=== PATIENT | male | born 1960 | race Caucasian/White ===

== ENCOUNTER 2021-12-07 10:24 | Emergency (ER) | payer OTHER, MEDICAID, SELFPAY ==
[2021-12-07 10:30] VITALS: BP 128/78; PULSE 60; RESP 14; TEMP 36.4; O2SAT 98; BMI 20.7
--- NOTE | 2021-12-07 11:02 | ED.WOUNDLAC ---
HPI - Wound/Laceration General Chief Complaint: Wound/Laceration Stated Complaint: Infection in lt pointer finger Time Seen by Provider: 12/07/21 10:36 Source: patient Mode of arrival: Ambulatory History of Present Illness HPI narrative: The patient is a 60-year-old male history of substance abuse currently at the methadone clinic presenting today with left index finger infection. 5 days ago he was seen and evaluated at [facility] for a laceration. He said he was getting studs out of tires out, when he slipped and cut his finger. He was prescribed antibiotics but he was unfortunately not able to pick him up. Today he was at the methadone clinic they took out a few sutures and some did discharge came out. He has not had any fever or chills he still has some mild swelling and erythema but still able to move his finger. Related Data Previous Rx's Medication Instructions Recorded cephalexin 500 mg capsule 500 mg PO TID 7 days #21 caps 12/07/21 Allergies Allergy/AdvReac Type Severity Reaction Status Date / Time codeine Allergy Verified 12/07/21 10:38 Review of Systems Review of Systems Narrative: GENERAL: Denies chills,fever HEENT: Denies throat pain RESPIRATORY: Denies dyspnea, cough, wheezing CARDIOVASCULAR: Denies chest pain, palpitations GASTROINTESTINAL: Denies nausea, vomiting MUSCULOSKELETAL: Denies extremity pain, injury SKIN: See HPI NEUROLOGIC: Denies weakness, dizziness, headache, numbness 8 point review of systems is negative except for those stated above and HPI Patient History Social History Smoking Status: Unknown if ever smoked Smoking Status: Unknown if ever smoked alcohol intake frequency: holidays/special occasions only Substance Use Type: methamphetamine Exam Initial Vital Signs Initial Vital Signs: Vital Signs Temperature 97.6 F 12/07/21 10:30 Pulse Rate 60 12/07/21 10:30 Respiratory Rate 14 12/07/21 10:30 Blood Pressure 128/78 12/07/21 10:30 Pulse Oximetry 98 12/07/21 10:30 Oxygen Delivery Method 12/07/21 10:30 GENERAL: Well-appearing, well-nourished and in no acute distress. CARDIOVASCULAR: peripheral pulses in tact, cap refill <2 sec RESPIRATORY: No respiratory distress, speaks in full sentences without difficulty EXTREMITIES: Normal range of motion, no clubbing or edema. Neurovascularly intact NEUROLOGICAL: Cranial nerves II through XII grossly intact. Normal gait and speech. SKIN: Finger mild erythema at PCP P able to flex and extend finger no gross discharge [address] Course Orders Ordered: ED Orders 12/07/21 10:41 Consult to RECREATION THERAPIST - Online Retailer Stat Vital Signs Vital signs: Vital Signs - 8 hr 12/07/21 10:30 Temperature 97.6 F Pulse Rate 60 Respiratory Rate 14 Blood Pressure 128/78 Pulse Oximetry 98 Oxygen Delivery Method Room Air MDM - Wound/Laceration MDM Narrative Medical decision making narrative: Patient has some mild erythema and swelling no gross drainage no obvious abscess. No sign of flexor tenosynovitis. He is prescribed antibiotics will pick them up at the pharmacy. He denies any history of MRSA. At this time sutures were removed at previous clinic 1 remains it needs a little longer that sutures not quite ready to come out. Discharge Plan Departure Patient Disposition: Home Clinical Impression: Cellulitis Instructions: Cellulitis Activity Restrictions/Additional Instructions: *You have been diagnosed with left index finger infection *What to do: Please keep finger clean and dry with soap and water. Monitor for any worsening redness. 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
--- NOTE | 2021-12-07 11:49 | CM.SWNOTE ---
INFORMATION SECURITY MANAGER Note INFORMATION SECURITY MANAGER receives consult and enters room. Patient is present with RN from [facility]. Patient presents to ED due to concern for infection on pointer finger. Patient is 60 y/o male with Medicaid and [employer] insurance. Patient reports concern for housing insecurity and financial insecurity. INFORMATION SECURITY MANAGER enters room and provides patient with housing, group home and transportation resources. Patient states that he lives in his car with his life partner. Patient is medically clear for d/c. Plan: patient to d/c to community [facility]
== END 2021-12-07 11:53 | disposition home or self-care (01) ==
PROVIDERS: Emergency Provider Emergency Medicine
DX: L03.012 Cellulitis of left finger (principal)
CPT/HCPCS: 99281

== ENCOUNTER 2022-03-07 13:53 | Observation (INO) | payer OTHER, MEDICAID, SELFPAY ==
[2022-03-07 13:57] VITALS: BP 108/68; PULSE 61; RESP 16; TEMP 36.3; O2SAT 94
--- NOTE | 2022-03-07 14:02 | DI.CT.S_ITS ---
PROCEDURE: CT ANGIO HEAD AND NECK INDICATIONS: Possible stroke TECHNIQUE: After the administration of intravenous contrast, 1 mm thick sections acquired from the aortic arch through the Lummi of Gonzalez. Post-contrast 4.5 mm thick sections then re-acquired from the foramen magnum to the vertex. 3-dimensional ldwlehv-lginzbufy-dskhuqofbr (MIP) and/or volume rendering reformats were acquired of the central intracranial vasculature and neck separately. For radiation dose reduction, the following was used: automated exposure control, adjustment of mA and/or kV according to patient size. COMPARISON: None. FINDINGS: Image quality: Excellent. BRAIN: CSF spaces: Ventricles are normal in size and shape. Basal cisterns are patent. No extra-axial fluid collections. Brain: No midline shift. No intracranial bleeds or masses. Jacob-white matter interface appears intact. No area of abnormal intracranial enhancement is seen. Skull and face: Calvarium and facial bones appear intact, without suspicious lesions. Orbits appear normal. Sinuses: Sinuses and mastoids are clear. HEAD CT ANGIOGRAPHY: Anterior circulation: Intracranial internal carotid arteries are normal in size and flow. The flow within the paired anterior cerebral arteries is normal and symmetric. The flow within the middle cerebral arteries is normal and symmetric. The anterior communicating artery is seen. No aneurysms are seen. Posterior circulation: Visualized portions of the vertebral arteries demonstrate normal caliber, and join to form a normal appearing basilar artery. Flow within the posterior cerebral arteries is normal and symmetric. No aneurysms are seen. NECK CT ANGIOGRAPHY: Carotid system: The great vessels demonstrate a conventional anatomy as they arise from the aortic arch. The origins of the common carotid arteries appear patent. The common carotid arteries demonstrate normal caliber and courses. The bifurcation regions are both widely patent. The internal carotid arteries demonstrate normal calibers and courses. Posterior circulation: The origins of the vertebral arteries both appear widely patent. The more superior extracranial portions of both vertebral arteries also demonstrate normal courses and calibers. They join to form a normal appearing basilar artery. Soft tissues: Visualized neck soft tissues demonstrate no suspicious abnormalities. Bones: No suspicious bony lesions. Visualized cervical spine appears normally aligned. IMPRESSION: 1. No CT evidence of acute intracranial bleed, midline shift or mass effect. No area of abnormal contrast enhancement. 2. No hemodynamically significant stenosis or aneurysm is seen in intracranial circulation. 3. No hemodynamically significant stenosis is seen in bilateral neck arteries. Any quantitative measurements of stenosis were performed using NASCET criteria. Dictated by: Adrian Mehta M.D. on 03/07/2022 at 14:45 Approved by: Adrian Mehta M.D. on 03/07/2022 at 14:52
--- NOTE | 2022-03-07 14:02 | DI.CT.S_ITS ---
PROCEDURE: CT HEAD/BRAIN WO CON INDICATIONS: Positive BE-FAST, Stroke symptoms TECHNIQUE: Noncontrast 4.5 mm thick angled axial sections acquired from the foramen magnum to the vertex, with coronal and sagittal reformats. For radiation dose reduction, the following was used: automated exposure control, adjustment of mA and/or kV according to patient size. COMPARISON: None. FINDINGS: Image quality: Excellent. CSF spaces: Basal cisterns are patent. No extra-axial fluid collections. Ventricles are normal in size and shape. Brain: No midline shift. No intracranial masses or hemorrhage. Jacob-white matter interface is normal. Skull and face: Calvarium and visualized facial bones are intact, without suspicious lesions. Sinuses: Visualized sinuses and mastoids are clear. IMPRESSION: No CT evidence of acute intracranial abnormalities. Dictated by: Adrian Mehta M.D. on 03/07/2022 at 14:45 Approved by: Adrian Mehta M.D. on 03/07/2022 at 14:45
--- NOTE | 2022-03-07 14:02 | DI.RAD.S_ITS ---
PROCEDURE: XR CHEST 1V INDICATIONS: Possible stroke TECHNIQUE: One view of the chest was acquired. COMPARISON: None. FINDINGS: Surgical changes and devices: Fusion hardware in lower cervical spine are seen. Lungs and pleura: Lungs are clear. No pleural effusions or pneumothorax. Mediastinum: Mediastinal contours appear normal. Heart size is normal. Bones and chest wall: No suspicious bony lesions. Overlying soft tissues appear unremarkable. IMPRESSION: No acute cardiopulmonary pathology. Dictated by: Adrian Mehta M.D. on 03/07/2022 at 14:32 Approved by: Adrian Mehta M.D. on 03/07/2022 at 14:32
--- NOTE | 2022-03-07 14:09 | ED_ITS ---
HPI - Neuro Symptoms/Deficit General Chief Complaint: Neuro Symptoms/Deficit Stated Complaint: decreased function of right arm , hx stroke Time Seen by Provider: 03/07/22 14:03 Source: patient Mode of arrival: EMS Limitations: no limitations History of Present Illness HPI Narrative: This is a 61-year-old male with history of prior stroke 30 years ago which he states may have been drug induced, known cervical stenosis and chronic methamphetamine abuse. Patient states that he woke up at 10:30 a.m. 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 Patient states he does have some neck pain but isn't radiating down his arm he has some numbness and tingling he denies issues elsewhere. Patient states he is allergic to codeine. States uses tobacco daily, occasional alcohol, he does use methamphetamines still last use yesterday. States that he is on Suboxone. Related Data Allergies Allergy/AdvReac Type Severity Reaction Status Date / Time codeine Allergy Verified 03/07/22 13:57 Penicillins Allergy Verified 03/07/22 13:57 Tetracyclines Allergy Verified 03/07/22 13:57 Review of Systems Review of Systems ROS Unobtainable: All systems reviewed & are unremarkable except as noted in HPI and below Patient History Social History Smoking Status: Current every day smoker Smoking Status: Current every day smoker alcohol intake frequency: holidays/special occasions only Substance Use Type: methamphetamine Exam Narrative Exam Narrative: GEN: well nourished, well appearing male, alert and oriented x 3, patient appears to be in mild distress. HEENT: Atraumatic, pupils are asymmetric, patient's right pupil is approximately 4 mm, left pupil is approximately 10 mm with almost a teardrop shape. extraocular movements are intact, nares are clear, TMs are clear with no fluid, there is no conjunctival pallor. Throat is clear without any exudates, e rythema, tonsillar enlargement or uvular deviation HEART: Regular rate and rhythm without murmur, clicks, rubs. No carotid bruits, pulses are equal in upper and lower extremities LUNGS:Lungs clear to auscultation, no wheezes, rales, crackles, chest moves symmetrically ABD:bowel sounds normal, soft, non-tender, no guarding, rebound, rigidity, no masses noted, no hepatosplenomegaly :No CVA tenderness MSCL: Non-tender, no muscle atrophy, patient has drift with right upper extremity, also has decreased oil inspector with right in comparison to the left, no pain with movement, decreased sensation slightly on the right upper extremity as well as right lower leg. Full range of motion, normal gait NEURO:CN 2-12 intact, sensation normal, finger nose finger test on right abnormal, heel robles test normal, romberg normal Initial Vital Signs Initial Vital Signs: Vital Signs Temperature 97.3 F L 03/07/22 13:57 Pulse Rate 61 03/07/22 13:57 Respiratory Rate 16 03/07/22 13:57 Blood Pressure 108/68 03/07/22 13:57 Pulse Oximetry 94 03/07/22 13:57 Oxygen Delivery Method 03/07/22 13:57 Scores NIH Stroke Scale Level of Conciousness: Alert, keenly responsive Ask month/age: Answers both questions correctly. Open/close eyes, close hand: Performs both tasks correctly Best gaze horizontal: Normal Visual peres: No visual loss Facial palsy: Normal symetrical movement Left arm drift: No drift for full 10 sec Right arm drift: Drifts down, not to bed Left leg drift: No drift for full 5 sec Right leg drift: No drift for full 5 sec Limb ataxia: Present in one limb Sensory on face/arms/legs: Mild to moderate sensory loss, can tell touch Best language: No aphasia, normal Dysarthria: Normal Extinction or inattention: No abnormality Total NIH Stroke scale score: 3 Course Orders Ordered: ED Orders 03/07/22 14:02 CT angio head and neck Stat CT head/brain wo con Stat XR chest 1V Stat 03/07/22 14:03 Complete Blood Count AUTO DIFF Stat Comprehensive Metabolic Panel Stat Magnesium Stat Partial Thromboplastin Time Stat Prothrombin Time INR Stat Troponin & CK Cardiac Panel Stat 03/07/22 14:09 EKG-12 Lead Stat 03/07/22 14:13 COVID19 -Nasal RAPID/Pre-Proc Stat 03/07/22 14:38 Urine Drug Screen, Rapid Stat 03/07/22 14:39 Urinalysis and Microscopic Stat Aspirin (Aspirin Ec 81 Mg Tablet) 81 mg PO DAILY [facility] Clopidogrel Bisulfate (Clopidogrel 75 Mg Tablet) 75 mg PO DAILY [facility] Melatonin (Melatonin 3 Mg Tablet) 6 mg PO BEDTIME [facility] Ondansetron HCl (Ondansetron 4 Mg Odt) 4 mg SL Q4HR PRN PRN Reason: Nausea Sennosides (Sennosides 8.6 Mg Tablet) 17.2 mg PO BEDTIME [facility] Discontinued Medications Aspirin (Aspirin 81 Mg Chew Tab) 324 mg PO NOW ONE Stop: 03/07/22 15:57 Last Admin: 03/07/22 15:59 Dose: 324 mg Documented By: RB Aspirin (Aspirin Ec 81 Mg Tablet) 81 mg PO DAILY [facility] Consultations Consultation #1: Dr. Larsno, hospitalist accepts for observation. Time: 16:00 Vital Signs Vital signs: Vital Signs - 8 hr 03/07/22 13:57 03/07/22 14:33 03/07/22 15:52 Temperature 97.3 F L Pulse Rate 61 58 L 54 L Respiratory Rate 16 18 Blood Pressure 108/68 127/70 121/75 Pulse Oximetry 94 93 96 Oxygen Delivery Method Room Air Room Air Room Air MDM - Neuro Symptoms/Deficit Lab Data Result diagrams: 03/07/22 14:03 03/07/22 14:03 Labs: Lab Results 03/07/22 03/07/22 03/07/22 Range/Units 14:03 14:03 14:03 WBC 6.3 (4.5-11.0) X10^3/uL RBC 3.58 L (4.5-5.9) X10^6/uL Hgb 10.9 L (13.5-17.5) g/dL Hct 31.8 L (41-53) % MCV 88.7 (80-100) fL MCH 30.3 (26-34) PG MCHC 34.2 (30-36) % RDW 13.7 (11.6-14.8) % Plt Count 296 (150-400) X10^3/uL Neut % (Auto) 36.8 L (50-75) % Lymph % (Auto) 49.0 H (25-40) % [place] % (Auto) 9.1 (3-14) % Eos % (Auto) 4.2 H (2-4) % Baso % (Auto) 0.9 (0-2) % Neut # (Auto) 2300 (1993-5070) /uL Lymph # (Auto) 3100 (2604-9936) /uL [place] # (Auto) 600 (0-900) /uL Eos # (Auto) 300 (0-450) /uL Baso # (Auto) 100 (0-100) /uL PT 13.1 H (10.1-12.7) SECONDS INR 1.1 (0.9-1.3) APTT 29 (26-36) SECONDS Sodium 139 (137-145) mmol/L Potassium 4.3 (3.4-5.1) mmol/L Chloride 104 (98-107) mmol/L Carbon Dioxide 30 (22-32) mmol/L BUN 14 (9-20) mg/dL Creatinine 0.92 (0.66-1.25) mg/dL Estimated GFR > 60 (>60) mL/min BUN/Creatinine Ratio 15.2 (6-22) Glucose 88 (80-110) mg/dL Calcium 8.5 (8.4-10.2) mg/dL Magnesium 2.2 (1.6-2.3) mg/dL Total Bilirubin 0.4 (0.2-1.3) mg/dL AST 21 (17-59) IU/L ALT 14 (<50) IU/L Alkaline Phosphatase 63 (38-126) U/L Total Creatine Kinase 81 (55-170) U/L CK-MB (CK-2) TNP CK-MB (CK-2) Rel Index TNP Troponin I < 0.012 (0.01-0.034) ng/mL Total Protein 6.7 (6.3-8.2) g/dL Albumin 3.8 (3.5-5.0) g/dL Globulin 2.9 (1.7-4.1) g/dL Albumin/Globulin Ratio 1.3 (1.0-2.8) Urine Color Urine Appearance Urine pH (4.5-8.0) Ur Specific [place] (1.000-1.035) Urine Protein (Negative) Urine Glucose (UA) (Negative) g/dL Urine Ketones (NEGATIVE) Urine Occult Blood (Negative) Urine Nitrate (Negative) Urine Bilirubin (NEGATIVE) Urine Urobilinogen (0.2) E.U./dL Ur Leukocyte Esterase (NEGATIVE) Urine RBC (0-5/HPF) Urine WBC (0-5/HPF) Urine Bacteria (None) Hyaline Casts (None) Ur Culture Indicated? U Opiates 300ng/mL cut (Negative) Ur Oxycodone Screen (Negative) Urine Methadone Screen (Negative) Ur Barbiturates Screen (Negative) U Tricyclic Antidepress (Negative) Ur Phencyclidine Scrn (Negative) Ur Amphetamines Screen (Negative) U Methamphetamines Scrn (Negative) Ur MDMA Scrn (Ecstasy) (Negative) U Benzodiazepines Scrn (Negative) Urine Cocaine Screen (Negative) U Marijuana (THC) Screen (Negative) SARS-CoV-2 (PCR) (Negative) 03/07/22 03/07/22 03/07/22 Range/Units 14:13 14:38 14:39 WBC (4.5-11.0) X10^3/uL RBC (4.5-5.9) X10^6/uL Hgb (13.5-17.5) g/dL Hct (41-53) % MCV (80-100) fL MCH (26-34) PG MCHC (30-36) % RDW (11.6-14.8) % Plt Count (150-400) X10^3/uL Neut % (Auto) (50-75) % Lymph % (Auto) (25-40) % [place] % (Auto) (3-14) % Eos % (Auto) (2-4) % Baso % (Auto) (0-2) % Neut # (Auto) (2833-7478) /uL Lymph # (Auto) (2474-0632) /uL [place] # (Auto) (0-900) /uL Eos # (Auto) (0-450) /uL Baso # (Auto) (0-100) /uL PT (10.1-12.7) SECONDS INR (0.9-1.3) APTT (26-36) SECONDS Sodium (137-145) mmol/L Potassium (3.4-5.1) mmol/L Chloride (98-107) mmol/L Carbon Dioxide (22-32) mmol/L BUN (9-20) mg/dL Creatinine (0.66-1.25) mg/dL Estimated GFR (>60) mL/min BUN/Creatinine Ratio (6-22) Glucose (80-110) mg/dL Calcium (8.4-10.2) mg/dL Magnesium (1.6-2.3) mg/dL Total Bilirubin (0.2-1.3) mg/dL AST (17-59) IU/L ALT (<50) IU/L Alkaline Phosphatase (38-126) U/L Total Creatine Kinase (55-170) U/L CK-MB (CK-2) CK-MB (CK-2) Rel Index Troponin I (0.01-0.034) ng/mL Total Protein (6.3-8.2) g/dL Albumin (3.5-5.0) g/dL Globulin (1.7-4.1) g/dL Albumin/Globulin Ratio (1.0-2.8) Urine Color Yellow Urine Appearance Clear Urine pH 7.5 (4.5-8.0) Ur Specific [place] 1.015 (1.000-1.035) Urine Protein Trace H (Negative) Urine Glucose (UA) Trace H (Negative) g/dL Urine Ketones Negative (NEGATIVE) Urine Occult Blood Negative (Negative) Urine Nitrate Negative (Negative) Urine Bilirubin Negative (NEGATIVE) Urine Urobilinogen 4.0 H (0.2) E.U./dL Ur Leukocyte Esterase Negative (NEGATIVE) Urine RBC 1-5/hpf (0-5/HPF) Urine WBC 1-5/hpf (0-5/HPF) Urine Bacteria None seen (None) Hyaline Casts 1-5/lpf (None) Ur Culture Indicated? Cult not indicated U Opiates 300ng/mL cut Negative (Negative) Ur Oxycodone Screen Negative (Negative) Urine Methadone Screen Positive H (Negative) Ur Barbiturates Screen Negative (Negative) U Tricyclic Antidepress Negative (Negative) Ur Phencyclidine Scrn Negative (Negative) Ur Amphetamines Screen Positive H (Negative) U Methamphetamines Scrn Positive H (Negative) Ur MDMA Scrn (Ecstasy) Negative (Negative) U Benzodiazepines Scrn Negative (Negative) Urine Cocaine Screen Negative (Negative) U Marijuana (THC) Screen Negative (Negative) SARS-CoV-2 (PCR) Negative (Negative) Point of Care Testing Glucose POC 93 Urine Dip Bedside Urine Glucose Negative Bedside Urine Bilirubin - Negative Bedside Urine Ketone - Negative Urine Specific [place] 1.015 Bedside Urine Occult Blood - Negative Bedside Urine pH 7.5 Bedside Urine Protein - Negative Bedside Urine Urobilinogen 1+ 2mg Bedside Urine Nitrite - Negative Bedside Urine Leukocytes - Negative Esterase Imaging Data CT scan - head: Radiologist's Impression: [address] [address] [address] Scan Report Signed Patient: Wolf Christianson Jr MR#: [id number] : 1960 Acct:[id number] Age/Sex: 61 / M Date of Service: 03/07/22 Loc: ED Accession Number: [id number] ?? Procedure: CT head/brain wo con Ordering Provider: Ni Tompkins D.O. PROCEDURE:? CT HEAD/BRAIN WO CON ? INDICATIONS:? Positive BE-FAST, Stroke symptoms ? TECHNIQUE:? Noncontrast 4.5 mm thick angled axial sections acquired from the foramen magnum to the vertex, with coronal and sagittal reformats.? For radiation dose reduction, the following was used:? automated exposure control, adjustment of mA and/or kV according to patient size.? ? COMPARISON:? None. ? FINDINGS:? Image quality:? Excellent.? ? CSF spaces:? Basal cisterns are patent.? No extra-axial fluid collections.? V entricles are normal in size and shape.? ? Brain:? No midline shift.? No intracranial masses or hemorrhage.? Jacob-white matter interface is normal.? ? Skull and face:? Calvarium and visualized facial bones are intact, without suspicious lesions.? ? Sinuses:? Visualized sinuses and mastoids are clear.? ? IMPRESSION:? No CT evidence of acute intracranial abnormalities. ? ? Dictated by: Adrian Mehta M.D. on 03/07/2022 at 14:45 ? ? Approved by: Adrian Mehta M.D. on 03/07/2022 at 14:45? CTA - brain/neck: Radiologist's Impression: [address] [address] [address] Scan Report Signed Patient: Wolf Christianson Jr MR#: [id number] : 1960 Acct:[id number] Age/Sex: 61 / M Date of Service: 03/07/22 Loc: ED Accession Number: [id number] ?? Procedure: CT head/brain wo con Ordering Provider: Ni Tompkins D.O. PROCEDURE:? CT HEAD/BRAIN WO CON ? INDICATIONS:? Positive BE-FAST, Stroke symptoms ? TECHNIQUE:? Noncontrast 4.5 mm thick angled axial sections acquired from the foramen magnum to the vertex, with coronal and sagittal reformats.? For radiation dose reduction, the following was used:? automated exposure control, adjustment of mA and/or kV according to patient size.? ? COMPARISON:? None. ? FINDINGS:? Image quality:? Excellent.? ? CSF spaces:? Basal cisterns are patent.? No extra-axial fluid collections.? Ventricles are normal in size and shape.? ? Brain:? No midline shift.? No intracranial masses or hemorrhage.? Jacob-white matter interface is normal.? ? Skull and face:? Calvarium and visualized facial bones are intact, without suspicious lesions.? ? Sinuses:? Visualized sinuses and mastoids are clear.? ? IMPRESSION:? No CT evidence of acute intracranial abnormalities. ? ? Dictated by: Adrian Mehta M.D. on 03/07/2022 at 14:45 ? ? Approved by: Adrian Mehta M.D. on 03/07/2022 at 14:45? Chest x-ray: Radiologist's Impression: [place] [address] XRay Report Signed Patient: Wolf Christianson Jr MR#: [id number] : 1960 Acct:[id number] Age/Sex: 61 / M Date of Service: 03/07/22 Loc: ED Accession Number: [id number] ?? Procedure: XR chest 1V Ordering Provider: Ni Tompkins D.O. PROCEDURE:? XR CHEST 1V ? INDICATIONS:? Possible stroke ? TECHNIQUE:? One view of the chest was acquired.? ? COMPARISON:? None. ? FINDINGS:? ? Surgical changes and devices:? Fusion hardware in lower cervical spine are seen.? ? Lungs and pleura:? Lungs are clear.? No pleural effusions or pneumothorax.? ? Mediastinum:? Mediastinal contours appear normal.? Heart size is normal.? ? Bones and chest wall:? No suspicious bony lesions.? Overlying soft tissues appear unremarkable.? ? IMPRESSION:? No acute cardiopulmonary pathology. ? ? Dictated by: Adrian Mehta M.D. on 03/07/2022 at 14:32 ? ? Approved by: Adrian Mehta M.D. on 03/07/2022 at 14:32?? ECG Data Attestation: I personally reviewed and interpreted this ECG as follows: Interpretation: Sinus rhythm, left anterior fascicular block rate of 60 P are 184 QRS of 106 and QTC 440. No acute ST changes noted. 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 Patient also has some perceived change on his lower extremity but otherwise normal neurologic exam. Patient states prior stroke in his 30s which he relates to possibly from drug abuse, states he has known cervical stenosis but does not have increased pain in his neck. Patient states he woke up with these symptoms making him unavailable for tPA. Patient's CTA head CT do not show acute changes that would make patient and appropriate code IR. Discussed with hospitalist, Dr. Larson who accepts for observation although discussed cervical stenosis is on the differential but without increase in pain seems much less likely. Stroke Core Measures Exclusion Criteria TPA in CVA: Symptom Onset >3 or 4.5 Hours (woke up with symptoms.) Discharge Plan Departure Patient Disposition: Admitted as Observation Clinical Impression: Cerebrovascular accident Admit Date/Time: 03/07/22 16:34 Admit Provider: Kimberly Larson
--- NOTE | 2022-03-07 14:13 | PC.NURSE ---
When Dr Tompkins spoke with pt she discovered that the patient woke up with these symptoms.
[2022-03-07 14:33] VITALS: BP 127/70; PULSE 58; RESP 18; O2SAT 93
[2022-03-07 14:44] LABS: Add Manual Diff / Slide Review NO; Basophils Absolute Auto 100 /uL (0-100); Basophils Percent Auto 0.9 % (0-2); Eosinophils Absolute Auto 300 /uL (0-450); Eosinophils Percent Auto 4.2 % (2-4); Hematocrit 31.8 % (41-53); Hemoglobin 10.9 g/dL (13.5-17.5); INR 1.1 (0.9-1.3); Lymphocytes Absolute Auto 3100 /uL (1100-4500); Mean Corpuscular HGB Conc 34.2 % (30-36); Mean Corpuscular Hemoglobin 30.3 PG (26-34); Mean Corpuscular Volume 88.7 fL (80-100); Monocytes Absolute Auto 600 /uL (0-900); Monocytes Percent Auto 9.1 % (3-14); Neutrophils Absolute Auto 2300 /uL (1500-7000); Neutrophils Percent Auto 36.8 % (50-75); Platelet Count 296 X10^3/uL (150-400); Prothrombin Time 13.1 SECONDS (10.1-12.7); Red Blood Cell Count 3.58 X10^6/uL (4.5-5.9); Red Cell Distribution Width 13.7 % (11.6-14.8); White Blood Cell Count 6.3 X10^3/uL (4.5-11.0)
[2022-03-07 14:47] LABS: PTT Partial Thromboplastin Tim 29 SECONDS (26-36)
[2022-03-07 14:49] LABS: Alanine Aminotransferase 14 IU/L (<50); Albumin 3.8 g/dL (3.5-5.0); Albumin Globulin Ratio 1.3 (1.0-2.8); Alkaline Phosphatase 63 U/L (38-126); Aspartate Aminotransferase 21 IU/L (17-59); BUN Creatinine Ratio 15.2 (6-22); Bilirubin Total 0.4 mg/dL (0.2-1.3); Blood Urea Nitrogen 14 mg/dL (9-20); Calcium 8.5 mg/dL (8.4-10.2); Carbon Dioxide 30 mmol/L (22-32); Chloride 104 mmol/L (98-107); Creatine Kinase 81 U/L (55-170); Estimated Glomerular Filt Rate > 60 mL/min (>60); Globulin 2.9 g/dL (1.7-4.1); Glucose 88 mg/dL (80-110); HEMOLYSIS < 15 (0-50); Magnesium 2.2 mg/dL (1.6-2.3); Potassium 4.3 mmol/L (3.4-5.1); Sodium 139 mmol/L (137-145); Total Protein 6.7 g/dL (6.3-8.2)
[2022-03-07 14:52] LABS: Appearance Urine UA CLEAR; Bilirubin Urine UA NEGATIVE (NEGATIVE); Color Urine UA YELLOW; Glucose Urine UA TRACE g/dL (Negative); Ketones Urine UA NEGATIVE (NEGATIVE); Leukocyte Esterase Urine UA NEGATIVE (NEGATIVE); Nitrite Urine UA NEGATIVE (Negative); Occult Blood Urine UA NEGATIVE (Negative); Protein Urine UA TRACE (Negative); Specific Gravity Urine UA 1.015 (1.000-1.035); pH Urine UA 7.5 (4.5-8.0)
[2022-03-07 14:53] LABS: COVID19 -Nasal RAPID Negative (Negative)
[2022-03-07 14:59] LABS: UR Morphine/Opiate cutoff 300 Negative (Negative); Ur Creatinine Normal (Normal); Ur Specific Gravity Normal (Normal); Urine Amphetamines Positive (Negative); Urine Barbiturates Negative (Negative); Urine Benzodiazepines Negative (Negative); Urine Cocaine Negative (Negative); Urine MDMA Negative (Negative); Urine Methadone Positive (Negative); Urine Methamphetamines Positive (Negative); Urine Oxycodone Negative (Negative); Urine Phencyclidine Negative (Negative); Urine Tetrahydrocannabinol Negative (Negative); Urine Tricyclic Antidepressant Negative (Negative); Urine pH Normal (Normal)
[2022-03-07 15:00] LABS: Troponin I < 0.012 ng/mL (0.01-0.034)
[2022-03-07 15:34] LABS: Bacteria Urine None Seen; RBC Urine 1-5/HPF (0-5/HPF); WBC Urine 1-5/HPF (0-5/HPF)
[2022-03-07 15:35] LABS: Culture Indicated Urine Cult Not Indicated; Hyaline Casts Urine 1-5/LPF
[2022-03-07 15:52] VITALS: BP 121/75; PULSE 54; O2SAT 96
[2022-03-07] MEDS: ASPIRIN 81 MG CHEW TAB 324 MG PO (15:59)
--- NOTE | 2022-03-07 16:22 | PM.HP.1 ---
History of Present Illness History of Present Illness Date Patient Seen: 03/07/22 Time Patient Seen: 17:00 Chief complaint: decreased function of right arm , hx stroke Narrative: Wolf Christianson a 61-year-old male with history of prior stroke 30 years ago which he states may have been drug induced, known cervical stenosis and chronic methamphetamine abuse.? Patient states that he woke up at 10:30 a.m. on day of presentation and he could not lift his right arm at all. 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 Patient states he does have some neck pain but isn't radiating down his arm he has some numbness and tingling but he denies issues elsewhere.? Patient states he is allergic to codeine.? States uses tobacco daily, occasional alcohol, he does use methamphetamines still last use yesterday.? States that he is on Suboxone possibly methadone since methadone is positive on toxicology screen.. Patient History Family & Social History Safety & Behavioral: Feels Safe in Current Yes Environment Been Physically Hurt or No Threatened By a Person Tobacco & Substance use: Smoking Status Current every day smoker alcohol intake frequency holiday/special occasion Substance Use Type methamphetamine Meds Home Medications and Allergies Allergies Allergy/AdvReac Type Severity Reaction Status Date / Time codeine Allergy Verified 03/07/22 13:57 Penicillins Allergy Verified 03/07/22 13:57 Tetracyclines Allergy Verified 03/07/22 13:57 Review of Systems Review of Systems Narrative: 14 system reviewed and pertinent findings are in the history of chief complaint Exam Vital Signs (past 8 hours): - 03/07/22 13:57 03/07/22 14:33 03/07/22 15:52 Temperature 97.3 F L Pulse Rate 61 58 L 54 L Respiratory Rate 16 18 Blood Pressure 108/68 127/70 121/75 Pulse Oximetry 94 93 96 Oxygen Delivery Method Room Air Room Air Room Air Oxygen Delivery Method Room Air Narrative Exam Narrative: GEN: well nourished, well appearing male, alert and oriented x 3 HEENT: Atraumatic, pupils are asymmetric, patient's right pupil is approximately 4 mm, left pupil is approximately 10 mm with almost a teardrop shape.? extraocular movements are intact, nares are clear, TMs are clear with no fluid, there is no conjunctival pallor.? Throat is clear without any exudates, erythema, tonsillar enlargement or uvular deviation HEART: Regular rate and rhythm without murmur, clicks, rubs.? No carotid bruits, pulses are equal in upper and lower extremities LUNGS:Lungs clear to auscultation, no wheezes, rales, crackles, chest moves symmetrically ABD:bowel sounds normal, soft, non-tender, no guarding, rebound, rigidity, no masses noted, no hepatosplenomegaly :No CVA tenderness MSCL: Non-tender, no muscle atrophy, patient has drift with right upper extremity, also has decreased radio division officer with right in comparison to the left, no pain with movement, decreased sensation slightly on the right upper extremity as well as right lower leg.? Full range of motion, normal gait NEURO:CN 2-12 intact, sensation normal, finger nose finger test on right abnormal, heel robles test normal, romberg normal Objective Labs Result Diagrams: 03/07/22 14:03 03/07/22 14:03 Labs: Laboratory Results - last 24 hr 03/07/22 03/07/22 03/07/22 14:03 14:03 14:03 WBC 6.3 RBC 3.58 L Hgb 10.9 L Hct 31.8 L MCV 88.7 MCH 30.3 MCHC 34.2 RDW 13.7 Plt Count 296 Neut % (Auto) 36.8 L Lymph % (Auto) 49.0 H [place] % (Auto) 9.1 Eos % (Auto) 4.2 H Baso % (Auto) 0.9 Neut # (Auto) 2300 Lymph # (Auto) 3100 [place] # (Auto) 600 Eos # (Auto) 300 Baso # (Auto) 100 PT 13.1 H INR 1.1 APTT 29 Sodium 139 Potassium 4.3 Chloride 104 Carbon Dioxide 30 BUN 14 Creatinine 0.92 Estimated GFR > 60 BUN/Creatinine Ratio 15.2 Glucose 88 Calcium 8.5 Magnesium 2.2 Total Bilirubin 0.4 AST 21 ALT 14 Alkaline Phosphatase 63 Total Creatine Kinase 81 CK-MB (CK-2) TNP CK-MB (CK-2) Rel Index TNP Troponin I < 0.012 Total Protein 6.7 Albumin 3.8 Globulin 2.9 Albumin/Globulin Ratio 1.3 Urine Color Urine Appearance Urine pH Ur Specific [place] Urine Protein Urine Glucose (UA) Urine Ketones Urine Occult Blood Urine Nitrate Urine Bilirubin Urine Urobilinogen Ur Leukocyte Esterase Urine RBC Urine WBC Urine Bacteria Hyaline Casts Ur Culture Indicated? U Opiates 300ng/mL cut Ur Oxycodone Screen Urine Methadone Screen Ur Barbiturates Screen U Tricyclic Antidepress Ur Phencyclidine Scrn Ur Amphetamines Screen U Methamphetamines Scrn Ur MDMA Scrn (Ecstasy) U Benzodiazepines Scrn Urine Cocaine Screen U Marijuana (THC) Screen SARS-CoV-2 (PCR) 03/07/22 03/07/22 03/07/22 14:13 14:38 14:39 WBC RBC Hgb Hct MCV MCH MCHC RDW Plt Count Neut % (Auto) Lymph % (Auto) [place] % (Auto) Eos % (Auto) Baso % (Auto) Neut # (Auto) Lymph # (Auto) [place] # (Auto) Eos # (Auto) Baso # (Auto) PT INR APTT Sodium Potassium Chloride Carbon Dioxide BUN Creatinine Estimated GFR BUN/Creatinine Ratio Glucose Calcium Magnesium Total Bilirubin AST ALT Alkaline Phosphatase Total Creatine Kinase CK-MB (CK-2) CK-MB (CK-2) Rel Index Troponin I Total Protein Albumin Globulin Albumin/Globulin Ratio Urine Color Yellow Urine Appearance Clear Urine pH 7.5 Ur Specific [place] 1.015 Urine Protein Trace H Urine Glucose (UA) Trace H Urine Ketones Negative Urine Occult Blood Negative Urine Nitrate Negative Urine Bilirubin Negative Urine Urobilinogen 4.0 H Ur Leukocyte Esterase Negative Urine RBC 1-5/hpf Urine WBC 1-5/hpf Urine Bacteria None seen Hyaline Casts 1-5/lpf Ur Culture Indicated? Cult not indicated U Opiates 300ng/mL cut Negative Ur Oxycodone Screen Negative Urine Methadone Screen Positive H Ur Barbiturates Screen Negative U Tricyclic Antidepress Negative Ur Phencyclidine Scrn Negative Ur Amphetamines Screen Positive H U Methamphetamines Scrn Positive H Ur MDMA Scrn (Ecstasy) Negative U Benzodiazepines Scrn Negative Urine Cocaine Screen Negative U Marijuana (THC) Screen Negative SARS-CoV-2 (PCR) Negative Assessment & Plan Assessment & Plan narrative: 1. New CVA nonhemorrhagic. Residual right arm weakness especially of the right hand. No findings specifically on the CTA of head and neck.. Will need MRI to confirm. Gave history of previous CVA but no residuals and no findings of old CVA on current CTA of head and neck. 2. Chronic substance abuse despite being on Suboxone. Most recent use of methamphetamine was yesterday. Need to be vigilant of possible withdrawal. 3. Patient concerned about prostate cancer. Has been told that he may be has is. Will do a PSA in the morning. 4. Noted elevated glucose in the urine. Will test with hemoglobin A1c in the morning. 5. Elevated PT. unclear of the cause. Follow tomorrow. 6. Smoker. Provide nicotine patch. DVT prophylaxis. Not needed patient is ambulating. Level of intervention: Post status full resuscitation. Designated substitute decision maker: Patient's named Jacquelin Campos. Time Spent With Patient Critical Care time: I spent a total of [] minutes of critical care time on this patient's care today; this time is exclusive of procedural time.
[2022-03-07 18:34] VITALS: BP 113/76; PULSE 59; RESP 22; TEMP 36.4; O2SAT 97
[2022-03-07 19:30] VITALS: BP 103/67; PULSE 60; RESP 16; TEMP 36.2; O2SAT 95
[2022-03-07] MEDS: MELATONIN 3 MG TABLET 6 MG PO (22:08)
[2022-03-07] MEDS: NICOTINE 7 MG PATCH TOP (22:09)
[2022-03-07] MEDS: SENNOSIDES 8.6 MG TABLET 17.2 MG PO (22:09)
[2022-03-08 05:28] LABS: INR 1.2 (0.9-1.3)
[2022-03-08 05:31] LABS: Alanine Aminotransferase 14 IU/L (<50); Albumin 3.3 g/dL (3.5-5.0); Albumin Globulin Ratio 1.3 (1.0-2.8); Alkaline Phosphatase 61 U/L (38-126); Aspartate Aminotransferase 19 IU/L (17-59); BUN Creatinine Ratio 17.8 (6-22); Bilirubin Total 0.4 mg/dL (0.2-1.3); Blood Urea Nitrogen 16 mg/dL (9-20); Carbon Dioxide 26 mmol/L (22-32); Chloride 104 mmol/L (98-107); Estimated Glomerular Filt Rate > 60 mL/min (>60); Globulin 2.6 g/dL (1.7-4.1); Glucose 84 mg/dL (80-110); HEMOLYSIS < 15 (0-50); Potassium 4.4 mmol/L (3.4-5.1); Sodium 135 mmol/L (137-145); Total Protein 5.9 g/dL (6.3-8.2)
[2022-03-08 05:37] LABS: Add Manual Diff / Slide Review NO; Basophils Absolute Auto 0 /uL (0-100); Basophils Percent Auto 0.9 % (0-2); Eosinophils Absolute Auto 200 /uL (0-450); Eosinophils Percent Auto 4.4 % (2-4); Hematocrit 30.5 % (41-53); Hemoglobin 10.3 g/dL (13.5-17.5); Lymphocytes Absolute Auto 2400 /uL (1100-4500); Lymphocytes Percent Auto 48.9 % (25-40); Mean Corpuscular HGB Conc 33.8 % (30-36); Mean Corpuscular Hemoglobin 29.9 PG (26-34); Mean Corpuscular Volume 88.6 fL (80-100); Monocytes Absolute Auto 400 /uL (0-900); Monocytes Percent Auto 8.4 % (3-14); Neutrophils Absolute Auto 1900 /uL (1500-7000); Neutrophils Percent Auto 37.4 % (50-75); Platelet Count 251 X10^3/uL (150-400); Red Blood Cell Count 3.44 X10^6/uL (4.5-5.9); Red Cell Distribution Width 14.2 % (11.6-14.8)
[2022-03-08 05:50] LABS: Hemoglobin A1C% w Est Avg Glu 5.2 % (4.0-6.0)
--- NOTE | 2022-03-08 07:14 | DI.US.S_ITS ---
PROCEDURE: US ABDOMEN LIMITED INDICATIONS: ?CIRRHOSIS TECHNIQUE: Real-time scanning was performed of the abdominal and retroperitoneal organs, with image documentation. COMPARISON: None. FINDINGS: Liver: Liver is mildly enlarged and measures 18.3 cm in length. Normal liver parenchymal echotexture is seen. No discrete hepatic lesion. Gallbladder: There is no gallstone. No gallbladder wall thickening or pericholecystic fluid. No sonographic Hernández sign. Biliary ducts: Prominent intrahepatic biliary ducts are seen. Extrahepatic bile duct is also enlarged and measures up to 15 millimeters in diameter. Tortuous common bile duct is noted. Normal is 6-7 mm or less in diameter, or 10 mm or less post-cholecystectomy. Pancreas: Visualized portions of the pancreas are sonographically normal. Prominent pancreatic duct measures up to 3 mm is seen. IMPRESSION: 1. Mild hepatomegaly. No discrete hepatic lesion. 2. Normal appearing gallbladder. 3. P intra and extrahepatic biliary ductal dilatation with common bile duct measures up to 15 mm in diameter. No gross choledocholithiasis. Clinical correlation is recommended. MRCP can also be done for further evaluation if indicated. Dictated by: Adrian Mehta M.D. on 03/08/2022 at 13:11 Approved by: Adrian Mehta M.D. on 03/08/2022 at 13:13
--- NOTE | 2022-03-08 07:54 | DI.ECHO.S_ITS ---
[facility] +---------+ : : [address] : : : : [id number] : : : : Phone: [phone]+ Echocardiogram Report + + :Name: ALVIN GAGE JR Vasquez Study Date: 03/08/2022 Height: 70 in : :[facility] ReadingLocation: Weight: 140 lb : : Gender: Male BSA: 1.8 m2 : :: 1960 Age: 61 yrs BP: 103/67 mmHg: :Reason For Study: CVA : :Ordering Physician: DERRELL, : :AUTUMN MANE Performed By: Emma French : :Referring: AUTUMN DOVE MD : + + Interpretation Summary Normal sinus rhythm. Normal LV size and wall thickness. Normal wall motion and low normal left ventricular systolic function. Ejection fraction is low normal and estimated at 50-55%. No significant valvular abnormalities. Normal chamber sizes with small PFO based on bubble study. Mildly dilated aortic root measuring 4.2 cm. Mildly dilated ascending aorta measuring 3.8 cm in diameter. No prior study available for comparison. Procedure: A two-dimensional transthoracic echocardiogram with color flow and Doppler was performed. The study quality was technically adequate. There is no prior echocardiogram noted for this patient. A saline contrast injection was performed to assess for cardiac shunting. The injection was performed through an intravenous line in the right arm. The patient was in sinus rhythm with heart rates between 57-68 bpm during the exam. Left Ventricle: The left ventricle is normal in size and wall thickness. The ejection fraction is estimated to be 50-55%. Right Ventricle: The right ventricle is normal in size and function. Atria: The left atrial size is normal. Right atrial size is normal. Injection of contrast documented an interatrial shunt. Mitral Valve: The mitral valve is normal in structure and function. There is trace mitral regurgitation. Aortic Valve: The aortic valve is trileaflet. The aortic valve opens well. There is no aortic valve stenosis. No aortic regurgitation is present. Tricuspid Valve: The tricuspid valve is normal in structure and function. There is mild tricuspid regurgitation. The right ventricular systolic pressure is estimated to be at least 28 mmHg based on an estimated right atrial pressure of 3 mm Hg. Pulmonic Valve: The pulmonic valve leaflets are thin and pliable; valve motion is normal. There is no pulmonic valvular regurgitation. Great Vessels: The aortic root is mildly dilated. The ascending aorta is normal in size. The IVC is of normal diameter and collapses greater than 50% with a sniff. This suggests a low right atrial pressure of 3 mm Hg. Pericardium/ Pleura There is no pericardial effusion. There is no pleural effusion. MMode/2D Measurements & Calculations LVIDd: 5.1 cm LVOT diam: 2.2 cm LVIDs: 3.4 cm Ao root diam: 4.2 cm FS: 33.4 % asc Aorta Diam: 3.8 cm EPSS: 1.2 cm Ao Arch Diam (Prox Trans): 3.2 cm IVSd: 0.75 cm LVPWd: 0.79 cm LV moore. diameter/BSA (cm/m^2): 2.8 LV sys. diameter/BSA (cm/m^2): 1.9 LA A2 area: 21.4 cm2 RA long axis: 4.8 cm LA A4 area: 15.2 cm2 RA area: 16.0 cm2 LA length (vol): 4.7 cm RA vol: 45.7 ml LA vol: 59.3 ml RA : 25.5 ml/m2 LA vol index: 33.0 ml/m2 IVC diam: 1.2 cm RVD1 (basal): 3.3 cm RVD2 (mid): 2.7 cm TAPSE: 1.6 cm Doppler Measurements & Calculations Ao V2 max: 115.4 cm/sec LVOT Max Sadiq: 82.4 cm/sec Ao V2 mean: 85.9 cm/sec LV V1 max P.7 mmHg Ao max P.3 mmHg LV V1 VTI: 18.2 cm Ao mean P.2 mmHg IMER(I,D): 2.3 cm2 Ao V2 VTI: 31.1 cm IMER(V,D): 2.8 cm2 sev ratio: 0.59 IMER indexed to BSA (cm^2/m^2): 1.3 MV E max sadiq: 56.6 cm/sec TR max sadiq: 251.0 cm/sec MV A max sadiq: 61.3 cm/sec TR max P.2 mmHg MV E/A: 0.92 PA V2 max: 96.9 cm/sec Med Peak E' Sadiq: 8.2 cm/sec PA V2 mean: 56.7 cm/sec E/E' med: 6.9 PA mean P.5 mmHg Lat Peak E' Sadiq: 12.1 cm/sec PA pr(Accel): 39.6 mmHg E/E' lat: 4.7 E/e' average: 5.8 MV dec time: 0.22 sec SV(OT): 71.5 ml Electronically signed by: Lisbet Ibarra M.D. on [place] Physician:03/08/2022 01:14 PM
[2022-03-08 08:36] VITALS: BP 111/77; PULSE 63; RESP 19; TEMP 36.3; O2SAT 94
[2022-03-08] MEDS: CLOPIDOGREL 75 MG TABLET PO (08:57)
[2022-03-08] MEDS: ASPIRIN EC 81 MG TABLET PO (08:57)
[2022-03-08] MEDS: NICOTINE 7 MG PATCH TOP (08:58)
--- NOTE | 2022-03-08 09:24 | PT-IP ANOTE ---
D/C PT per nursing and MD as patient is up independent in room.
--- NOTE | 2022-03-08 09:50 | OT.IP.EVAL ---
Occupational Therapy Inpatient Evaluation/Re-Eval M1 PT/OT-IP Prior Functional Status Start: 03/08/22 11:14 Freq: NEEDED Status: Active Protocol: Document 03/08/22 09:50 [facility] (Rec: 03/08/22 12:31 [facility] [id number]) Medical Review Prior Functional Status Communication independent Mobility and Gait independent Activities of Daily Living and IADL's independent- per pt uses the bathroom and showers when he can and what is available to him Prior Functional Level (Other details) Pt is homeless and lives out of his car. Social History Living Arrangements Homeless M2 OT-IP Current Condition Start: 03/08/22 11:14 Freq: Status: Active Protocol: Document 03/08/22 09:50 [facility] (Rec: 03/08/22 12:31 [facility] [id number]) Occupational Therapy Current Condition Current Condition Evaluation Date 03/08/22 Treatment Diagnosis right arm weakness Diagnosis Onset Date 03/07/22 M3 OT- IP Subjective and Pain Start: 03/08/22 11:14 Freq: Status: Active Protocol: Document 03/08/22 09:50 [facility] (Rec: 03/08/22 12:31 [facility] [id number]) OT- Subjective Occupational Therapy Visit Type Type Initial Evaluation Visit Start Time 09:50 Visit Stop Time 10:07 Total Visit Minutes 17 Occupational Therapy Visit Comments Patient Comments Pt agreed to work with OT for OT eval. Patient/Caregiver Goals To get better. OT Pain Assessment Pain When Pain Assessed At Rest Pain Present Pain Present Pain Reported Location Back Description Aching Pain Behaviors Facial Grimacing,Holding Area, Moaning M4 OT- IP ADL's Start: 03/08/22 11:14 Freq: Status: Active Protocol: Document 03/08/22 09:50 [facility] (Rec: 03/08/22 12:31 [facility] [id number]) OT LTC-Adrd-Tusnslv Comments OT Self-Feeding Comments Pt has not eaten yet. OT ADL-Grooming Comments OT Grooming Comments Pt refused. OT ADL-Oral Care Comments Oral Care Comments Pt refused. OT ADL-Dressing General Eval Lower Body Dressing Ability Standby Assistance Comments OT Dressing Comments Pt able to put on and tie his laces of his boots while seated in the recliner. Pt having to use his left hand more for coordinations as right hand is slower to more and has more difficulty with finger extension movements. OT ADL-Toileting Comments OT Toileting Comments Pt states went earlier. OT ADL-Bathing Comments OT Bathing Comments Not performed. M5 OT- IP IADL's Start: 03/08/22 11:14 Freq: Status: Active Protocol: Document 03/08/22 09:50 [facility] (Rec: 03/08/22 12:31 [facility] [id number]) OT-Instrumental Activities of Daily Living Home Safety Awareness Home Safety Comments Pt states takes care of himself. M6 OT- IP Functional Cognition Start: 03/08/22 11:14 Freq: Status: Active Protocol: Document 03/08/22 09:50 [facility] (Rec: 03/08/22 12:31 [facility] [id number]) Cognitive Factors Limiting Selfcare Function Cognitive Ability Level of Alertness Alert Patient Orientation Name,Age,Birthday,Month,Date, Year,Day of Week,Place, Situation Attention Span Ability Capable of Focused Attention, Capable of Sustained Attention Ability to Follow Commands Able to Follow One Step Commands Cognitive Comments Cognitive Assessment Comments Pt able to follow commands for mobility and ADL needs. Pt most likely at his baseline for cognitive needs. OT- Vision and Hearing OT- Hearing Assessment OT- Hearing Assessment WFL OT- Vision Assessment Visual Attentiveness WFL Vision Assessment Comments Left pupil much larger than right side. M7 OT- IP Mobility and Balance Start: 03/08/22 11:14 Freq: Status: Active Protocol: Document 03/08/22 09:50 [facility] (Rec: 03/08/22 12:31 [facility] [id number]) OT- Bed Mobility Assessment Rolling Level of Assistance Independent Supine to Sit Supine to Sit Assist Independent Sit to Supine Sit to Supine Assist Independent Scooting Scooting to Edge of Bed Independent OT-Transfer Assessment Sit to and From Stand Sit to and from Stand Independent Transfers Transfer Ability Standby Assistance Technique Transfer Destination Bed,Chair Devices Transfer Assistive Devices None Comments Mobility Comments Pt able to get out of the bed on his own and able to walk in the room with flexed posture due to his back pain and distant SBA. Pt feels that he is stiff from sleeping in the hospital bed as he is used to his car seat for sleeping. OT- Balance Assessment Sitting Balance and Reactions Static Sitting Balance Ability Normal Dynamic Sitting Balance Ability Good Standing Balance and Reactions Static Standing Balance Ability Good Dynamic Standing Balance Ability Fair M8 OT- IP Objective Assessments Start: 03/08/22 11:14 Freq: Status: Active Protocol: Document 03/08/22 09:50 [facility] (Rec: 03/08/22 12:31 [facility] [id number]) OT Gross Range of Motion Upper Extremity Range of Motion Assessment Right Impaired OT Strength Upper Extremity Strength Assessment Right Impaired Comments Strength Comments RUE decreased for triceps and finger extension movements, which may be from possible impingement as pt states sleeps in his car and leans on the right side. M9 OT- IP Assessment and Plan Start: 03/08/22 11:14 Freq: Status: Active Protocol: Document 03/08/22 09:50 [facility] (Rec: 03/08/22 12:31 [facility] [id number]) OT Summary Assessment and Plan Potential Rehabilitation Potential Good Analytic Complexity at Evaluation Low Summary OT Impairments Range of Motion,Strength Progress Towards Goals Progressing Toward Goals Assessment Summary Pt low complexity and main barriers is decreased strength with right arm especially for triceps and finger extension which make it hard to tie his shoes but still able to do. Pt not open to any exercises to help with his weakness and states that he will be fine and just wants to eat. Therefore discharge pt from OT services. Frequency of Treatment Frequency Of Treatment Discharge
[2022-03-08] MEDS: METHADONE 10 MG TABLET 90 MG PO (11:02)
[2022-03-08] MEDS: CIPROFLOXACIN 250 MG TABLET PO (11:03)
--- NOTE | 2022-03-08 11:58 | CM.DANOTE ---
Addendum entered by Claribel Benitez R.N. 03/08/22 14:44: Pt is d/cing today. DCP spoke with Hawa SILVERMAN, and she informed me that he has a good discharge plan. Pt is confident that he could get a new intake appointment with an inpatient rehab facility. Pt to wait for his to pick him up today from the hospital. Claribel Benitez RN/YOUNG Original Note: DCP Assessment: Payor: [place] [employer] PCP: None Pt is a 61 y.o. who presented to the ER for decreased function of his right arm. Pt has a history of stroke 30 years ago. Pt also has chronic meth abuse as well as tobacco and alcohol use. Ct ordered. Pt admitted as observation for further evaluation and management of symptoms. DCP met with pt this morning to discuss discharge needs. Pt laying in bed. DCP introduced herself and role. Pt states that he lives in his car with his spouse, Jacquelin. Pt states that he is looking for a more permanent housing situation but has not been able to find any. Pt states that he is also trying to get into a treatment facility for his drug abuse but has not been able to. Pt states that he forbes his car here in [employer]. Pt did not mention any resources but DCP has reached out to the rag production worker here today for further workup. White board was updated and instructed to call if any questions. Pt thankful for discussion. DCP to continue to follow and work with social work on this case. P: Discharge needs unclear at this time. Will continue to follow. Claribel Benitez RN/YOUNG Discharge Planning/Care Management CM Discharge Assessment Start: 03/08/22 09:08 Freq: Status: Active Protocol: Document 03/08/22 11:57 MARY (Rec: 03/08/22 11:58 MARY [id number]) Discharge Planning Assessment Assigned Diaphragm Builder Claribel Benitez RN/YOUNG Advance Directives? No History Provided By Patient Prior Living Arrangements Homeless Comment Lives in car Household Members spouse Type of transporation used prior to Drives own vehicle admit Independent with ADL's Yes Is patient alert and oriented? Yes Caregiver for Another No DME Already Rented / Owned Cane Discharge Plan Home Referrals Initiated None needed Additional Comment At this time. Whiteboard Updated in Patient Room with Yes name and ext. # of Diaphragm Builder Comment Instructed to call Review Status In Process Please Provide Date Initial DC 03/08/22 Assessment Was Performed Next Review Type Continued Stay Review
--- NOTE | 2022-03-08 12:38 | OT.IPNOTE ---
Discharge pt from OT services as pt not wanting any exercises for right arm weakness.
--- NOTE | 2022-03-08 14:13 | P.DS_ITS ---
History of Present Illness History of Present Illness Chief complaint: decreased function of right arm , hx stroke Narrative: Wolf Christianson a 61-year-old male with history given by him of a prior stroke 30 years ago which he states may have been drug induced. However during the hospital stay, this was clarified not to be a stroke but a myocardial infarction. He has known cervical stenosis and chronic methamphetamine abuse.? Patient states that he woke up at 10:30 a.m. on day of presentation and he could not lift his right arm at all. He states it has improved quite considerably since that initial time and he can lift it but still has pretty significant issues with hand movement.? Patient states has had some neck pain but isn't radiating down his arm. He did have some numbness and tingling but he denied issues elsewhere.? Patient is on a methadone program with 90 mg per day. Discharge Providers Provider Date of admission: 03/07/22 16:34 Discharge Date: 03/08/22 Consults: 03/07/22 18:48 Consult to Physical Therapy Evaluate & Treat Comment: Post CVA. Physician Instructions: Evaluate and Treat 03/07/22 18:49 Consult to Occupational Therapy Evaluate & Treat Comment: Post CVA Physician Instructions: Evaluate and treat 03/07/22 23:02 Consult to [employer] [place] - Artificial Limb Fitter Routine Comment: [employer] [place] Consult needed for:: Social Determinants issue Discharge provider: Kimberly Larson MD Summary Hospital Course Discharge Diagnosis: Most responsible diagnosis for hospital stay: Right radial nerve palsy Pre admit diagnosis: Right radial nerve palsy PFO History of drug abuse with methamphetamine on methadone program Smoker Positive urine drug screen for methadone, amphetamine and methamphetamine Urine positive for protein and glucose Elevated urine urobilinogen Elevated prothrombin time Hepatomegaly Biliary duct dilatation, cause not identified Post admit diagnosis: CT angiogram of the head and neck as well as MRI of head confirmation not have any acute cerebrovascular accident Secondary diagnoses: Myocardial infarction history (as indicated by patient) Hospital Course: He presented with right upper extremity symptoms of difficulty with movement as well some numbness and tingling of the arm. Movement of the elbow and wrists as well as the tingling and numbness of the arm resolved during the hospital stay, however extension of his and thumb of his right hand remained compromised. There was initial concern for possible TIA or CVA. However, initial CT of the head followed by CT angiogram of the head and neck and MRI confirmed no CVA. As the patient's symptoms were resolving and localizing to deficits only in extension of the fingers in the right thumb, assistant head cashier pattern became more clear to be consistent with radial nerve palsy secondary to the position the patient was sleeping and at night. Patient sleeps in his car and he indicated he was in an awkward position or sitting upright and leaning on his right arm. Patient was reassured was likely things with slowly resolve to be completely all likely within 4 weeks. There is a small chance that it would not be completely resolv ed however. As part of his workup for CVA an echocardiogram was completed and the patient was noted to have PFO. With this that would be reasonable that the patient takes baby aspirin per day. Status at Discharge Cognitive/behavioral status at discharge: at baseline, oriented Functional status at discharge: independent ambulation Overall status at discharge: patient is progressing back to baseline Time Spent with Patient Time spent: Greater than 30 minutes Time spent discussing smoking cessation with patient: more than 10 minutes Exam Vital Signs (past 8 hours): - 03/08/22 08:36 Temperature 97.3 F L Pulse Rate 63 Respiratory Rate 19 Blood Pressure 111/77 Pulse Oximetry 94 Oxygen Flow Rate 0 Oxygen Delivery Method Room Air Oxygen Flow Rate 0 Narrative Exam Narrative: GEN: well nourished, well appearing male, alert and oriented x 3 HEENT: Atraumatic, extraocular movements normal,?normocephalic. HEART: Regular rate and rhythm without murmur, clicks, rubs.? No carotid bruits, pulses are equal in upper and lower extremities LUNGS:Lungs clear to auscultation, no wheezes, rales, crackles, chest moves symmetrically ABD:bowel sounds normal, soft, non-tender, bowel sounds normal :No CVA tenderness MSCL: Non-tender, no muscle atrophy, remaining attention deficit of the right fingers and right thumb NEURO:CN 2-12 intact, sensation normal Objective Labs Result Diagrams: 03/08/22 04:58 03/08/22 04:58 Labs: Laboratory Results - last 24 hr 03/07/22 03/07/22 03/07/22 14:03 14:03 14:03 WBC 6.3 RBC 3.58 L Hgb 10.9 L Hct 31.8 L MCV 88.7 MCH 30.3 MCHC 34.2 RDW 13.7 Plt Count 296 Neut % (Auto) 36.8 L Lymph % (Auto) 49.0 H [place] % (Auto) 9.1 Eos % (Auto) 4.2 H Baso % (Auto) 0.9 Neut # (Auto) 2300 Lymph # (Auto) 3100 [place] # (Auto) 600 Eos # (Auto) 300 Baso # (Auto) 100 PT 13.1 H INR 1.1 APTT 29 Sodium 139 Potassium 4.3 Chloride 104 Carbon Dioxide 30 BUN 14 Creatinine 0.92 Estimated GFR > 60 BUN/Creatinine Ratio 15.2 Glucose 88 Hemoglobin A1c Calcium 8.5 Magnesium 2.2 Total Bilirubin 0.4 AST 21 ALT 14 Alkaline Phosphatase 63 Total Creatine Kinase 81 CK-MB (CK-2) TNP CK-MB (CK-2) Rel Index TNP Troponin I < 0.012 Total Protein 6.7 Albumin 3.8 Globulin 2.9 Albumin/Globulin Ratio 1.3 Urine Color Urine Appearance Urine pH Ur Specific [place] Urine Protein Urine Glucose (UA) Urine Ketones Urine Occult Blood Urine Nitrate Urine Bilirubin Urine Urobilinogen Ur Leukocyte Esterase Urine RBC Urine WBC Urine Bacteria Hyaline Casts Ur Culture Indicated? U Opiates 300ng/mL cut Ur Oxycodone Screen Urine Methadone Screen Ur Barbiturates Screen U Tricyclic Antidepress Ur Phencyclidine Scrn Ur Amphetamines Screen U Methamphetamines Scrn Ur MDMA Scrn (Ecstasy) U Benzodiazepines Scrn Urine Cocaine Screen U Marijuana (THC) Screen SARS-CoV-2 (PCR) 03/07/22 03/07/22 03/07/22 14:13 14:38 14:39 WBC RBC Hgb Hct MCV MCH MCHC RDW Plt Count Neut % (Auto) Lymph % (Auto) [place] % (Auto) Eos % (Auto) Baso % (Auto) Neut # (Auto) Lymph # (Auto) [place] # (Auto) Eos # (Auto) Baso # (Auto) PT INR APTT Sodium Potassium Chloride Carbon Dioxide BUN Creatinine Estimated GFR BUN/Creatinine Ratio Glucose Hemoglobin A1c Calcium Magnesium Total Bilirubin AST ALT Alkaline Phosphatase Total Creatine Kinase CK-MB (CK-2) CK-MB (CK-2) Rel Index Troponin I Total Protein Albumin Globulin Albumin/Globulin Ratio Urine Color Yellow Urine Appearance Clear Urine pH 7.5 Ur Specific [place] 1.015 Urine Protein Trace H Urine Glucose (UA) Trace H Urine Ketones Negative Urine Occult Blood Negative Urine Nitrate Negative Urine Bilirubin Negative Urine Urobilinogen 4.0 H Ur Leukocyte Esterase Negative Urine RBC 1-5/hpf Urine WBC 1-5/hpf Urine Bacteria None seen Hyaline Casts 1-5/lpf Ur Culture Indicated? Cult not indicated U Opiates 300ng/mL cut Negative Ur Oxycodone Screen Negative Urine Methadone Screen Positive H Ur Barbiturates Screen Negative U Tricyclic Antidepress Negative Ur Phencyclidine Scrn Negative Ur Amphetamines Screen Positive H U Methamphetamines Scrn Positive H Ur MDMA Scrn (Ecstasy) Negative U Benzodiazepines Scrn Negative Urine Cocaine Screen Negative U Marijuana (THC) Screen Negative SARS-CoV-2 (PCR) Negative 03/08/22 03/08/22 03/08/22 04:58 04:58 04:58 WBC 5.0 RBC 3.44 L Hgb 10.3 L Hct 30.5 L MCV 88.6 MCH 29.9 MCHC 33.8 RDW 14.2 Plt Count 251 Neut % (Auto) 37.4 L Lymph % (Auto) 48.9 H [place] % (Auto) 8.4 Eos % (Auto) 4.4 H Baso % (Auto) 0.9 Neut # (Auto) 1900 Lymph # (Auto) 2400 [place] # (Auto) 400 Eos # (Auto) 200 Baso # (Auto) 0 PT 14.0 H INR 1.2 APTT Sodium 135 L Potassium 4.4 Chloride 104 Carbon Dioxide 26 BUN 16 Creatinine 0.90 Estimated GFR > 60 BUN/Creatinine Ratio 17.8 Glucose 84 Hemoglobin A1c Calcium 8.0 L Magnesium Total Bilirubin 0.4 AST 19 ALT 14 Alkaline Phosphatase 61 Total Creatine Kinase CK-MB (CK-2) CK-MB (CK-2) Rel Index Troponin I Total Protein 5.9 L Albumin 3.3 L Globulin 2.6 Albumin/Globulin Ratio 1.3 Urine Color Urine Appearance Urine pH Ur Specific [place] Urine Protein Urine Glucose (UA) Urine Ketones Urine Occult Blood Urine Nitrate Urine Bilirubin Urine Urobilinogen Ur Leukocyte Esterase Urine RBC Urine WBC Urine Bacteria Hyaline Casts Ur Culture Indicated? U Opiates 300ng/mL cut Ur Oxycodone Screen Urine Methadone Screen Ur Barbiturates Screen U Tricyclic Antidepress Ur Phencyclidine Scrn Ur Amphetamines Screen U Methamphetamines Scrn Ur MDMA Scrn (Ecstasy) U Benzodiazepines Scrn Urine Cocaine Screen U Marijuana (THC) Screen SARS-CoV-2 (PCR) 03/08/22 04:58 WBC RBC Hgb Hct MCV MCH MCHC RDW Plt Count Neut % (Auto) Lymph % (Auto) [place] % (Auto) Eos % (Auto) Baso % (Auto) Neut # (Auto) Lymph # (Auto) [place] # (Auto) Eos # (Auto) Baso # (Auto) PT INR APTT Sodium Potassium Chloride Carbon Dioxide BUN Creatinine Estimated GFR BUN/Creatinine Ratio Glucose Hemoglobin A1c 5.2 Calcium Magnesium Total Bilirubin AST ALT Alkaline Phosphatase Total Creatine Kinase CK-MB (CK-2) CK-MB (CK-2) Rel Index Troponin I Total Protein Albumin Globulin Albumin/Globulin Ratio Urine Color Urine Appearance Urine pH Ur Specific [place] Urine Protein Urine Glucose (UA) Urine Ketones Urine Occult Blood Urine Nitrate Urine Bilirubin Urine Urobilinogen Ur Leukocyte Esterase Urine RBC Urine WBC Urine Bacteria Hyaline Casts Ur Culture Indicated? U Opiates 300ng/mL cut Ur Oxycodone Screen Urine Methadone Screen Ur Barbiturates Screen U Tricyclic Antidepress Ur Phencyclidine Scrn Ur Amphetamines Screen U Methamphetamines Scrn Ur MDMA Scrn (Ecstasy) U Benzodiazepines Scrn Urine Cocaine Screen U Marijuana (THC) Screen SARS-CoV-2 (PCR) [facility] Social History household members: spouse Smoking Status: Current every day smoker Discharge Assessment & Plan Assessment and Plan Assessment: Discharge. Plan of Treatment: Follow-up for daily methadone for tomorrow. Discharge Plan Discharge Plan Patient Disposition: Home Provider Discharge Comment: Patient should continue to receive his regular daily dose of methadone of 90 mg daily by the usual methods that he has been receiving this prior to presentation. It was not listed as a home medication on presentation but essentially is. As well it was recommended that the patient takes a baby aspirin per day. Discharge orders & Medications Prescriptions: No Action No Known Home Medications Discharge Data Attending Provider: Kimberly Larson Quality VTE Deep Vein Thrombosis/Pulmonary Embolism Present on Admission: No
--- NOTE | 2022-03-08 14:57 | CM.DPC ---
DCP/ORCHID TRANSPLANTER Note ORCHID TRANSPLANTER receives call from [facility] regarding ORCHID TRANSPLANTER consult. Patient has hx of Methamphetamine use and is currently residing in his car with . ORCHID TRANSPLANTER enters room to meet meet with patient as he was just discharged upon medical clearance. Patient endorses that he and his had a scheduled intake appt at [facility] today to be screened to go to inpatient treatment and [facility] in [place]. Patient endorses that he is seeking housing and is also trying to address his substance use. Patient endorses that he was informed that [facility] can assist patient with housing programs upon d/c from their inpatient program. Patient states that he has no problem rescheduling this appt with [facility] and [facility]. Patient endorses that he does not have a phone and his Jacquelin does not have a phone and she currently has the car. Patient attempts to call his sister from his patient room. Patient provides his sister's phone number to MALIHA Mendez (Ph. # [phone]). Patient endorses his plan upon d/c is to wait by the entrance as his was planning to come by today. ORCHID TRANSPLANTER calls patient's sister and leaves requesting return call. ORCHID TRANSPLANTER re-enters room to inform patient of this but patient is in the shower, ORCHID TRANSPLANTER leaves note for patient. ORCHID TRANSPLANTER informs the above to [facility], and ROBERTO Gallegos. Plan: Patient is medically clear for d/c, patient to await for his for transportation after d/c. Patient to f/u with [facility] to set up new inpatient intake appt with [facility]. LEONIDAS LoveSW
--- NOTE | 2022-03-08 18:40 | DI.MRI.S_ITS ---
PROCEDURE: MR HEAD/BRAIN WO CON INDICATIONS: Assess for acute CVA- infarct TECHNIQUE: Non-contrast axial T1 spin echo, axial T2 fast spin echo, sagittal and axial FLAIR, coronal T2 fast spin echo, axial gradient echo, axial diffusion and ADC through the brain. COMPARISON: [facility], CT, CT ANGIO HEAD AND NECK, 03/07/2022, 14:14. FINDINGS: Image quality: Excellent. CSF spaces: Ventricles appear symmetric in size and shape. Basal cisterns are patent. No extra-axial fluid collections. Brain: No intracranial bleeds or mass effects. There is cerebral volume loss for age. There are periventricular and deep white matter chronic small vessel ischemic changes. Brainstem appears normal. Diffusion-weighted images show no acute ischemic insults. No chronic ischemic insults. Normal intravascular flow voids are present. Skull and face: Calvarial bone marrow is normal in signal. Orbits are normal. Sinuses: Small amount of right mastoid fluid. Sinuses and mastoids are otherwise clear. IMPRESSION: 1. No acute process. No recent infarct. 2. Mild volume loss and small vessel ischemic disease. 3. Small amount of right mastoid fluid. Dictated by: Jes Borges M.D. on 03/08/2022 at 8:44 Approved by: Jes Borges M.D. on 03/08/2022 at 8:45
== END 2022-03-08 15:30 | disposition home or self-care (01) ==
LOC: ED 15:59 → AC 16:58
PROVIDERS: Admitting Provider Neuromusculoskeletal Medicine, Sports Medicine; Emergency Provider Emergency Medicine; Referring Provider Emergency Medicine; Visit Provider Neuromusculoskeletal Medicine, Sports Medicine
DX: R29.818 Other symptoms and signs involving the nervous system (principal); G56.31 Lesion of radial nerve, right upper limb; Z86.73 Personal history of transient ischemic attack (TIA), and cerebral infarction without residual deficits; M48.02 Spinal stenosis, cervical region; F11.20 Opioid dependence, uncomplicated; F15.10 Other stimulant abuse, uncomplicated; Z72.0 Tobacco use; R29.703 NIHSS score 3; Z20.822 Contact with and (suspected) exposure to COVID-19
CPT/HCPCS: 36415; 70450; 70496; 70498; 70551; 71045; 76705; 80053; 80305; 81001; 81003; 82550; 82962; 83036; 83735; 84153; 84484; 85025; 85610; 85730; 87635; 93005; 93010; 93306; 97165; 99284; C9803; G0378; Q9967